=== PATIENT | female | born 1965 | race Caucasian/White ===

== ENCOUNTER 2024-11-25 11:11 | Emergency (ER) | payer OTHER, SELFPAY ==
[2024-11-25 11:23] VITALS: BP 118/86; PULSE 67; RESP 16; TEMP 36.8; O2SAT 100
--- NOTE | 2024-11-25 11:24 | ED.FEMALEGU ---
HPI - Female Genitourinary General Chief complaint: Urogenital-Female Stated complaint: possible bladder infection Time Seen by Provider: 11/25/24 11:24 Source: patient, RN notes reviewed and old records reviewed Mode of arrival: ambulatory Limitations: no limitations History of Present Illness HPI Narrative: 59 year old female presents to [facility] care with complaints of 3 weeks of left flank pain. She states that she initially started with some pelvic pressure and thought she may have a yeast infection so she took Fluconazole without resolution of symptoms. She states that she also thought she could have a muscle strain to her left flank stating that she does lift a lot of boxes at the [employer]. She reports that she recently had sinus infection and completed antibiotic 2 days ago. She reports that for the past 2 days she has had increased frequency of urination and has been dribbling urine and has pelvic pressure. Patient reports history of constipation and Diverticulitis. Patient reports no radiation of her left flank pain and has taken Ibuprofen with some decrease in her discomfort. MD elicited complaint: UTI and other (urinary frequency. dribbling of urine. left flank pain) Onset (ago): week(s) (left flank pain and pelvic pressure 3 weeks, 2-3 days of urinary frequency and dribbling urine) Severity scale (1-10): 5 Quality of pain: aching Treatment prior to arrival: NSAIDs and other (took dose of Diflucan) Related Data Home Medications ?Medication ?Instructions ?Recorded ?Confirmed ?Last Taken ?Type benzonatate 200 mg capsule mg PO 11/25/24 Unknown History buspirone 10 mg tablet mg 11/25/24 Unknown History carvedilol 3.125 mg tablet mg 11/25/24 Unknown History escitalopram oxalate 20 mg tablet mg 11/25/24 Unknown History fluticasone furoate 100 inhalation 11/25/24 Unknown History mcg-vilanterol 25 mcg/dose inhalation powder (Breo Ellipta) fluticasone propionate 50 intranasal 11/25/24 Unknown History mcg/actuation nasal spray,suspension montelukast 10 mg tablet mg 11/25/24 Unknown History topiramate 50 mg tablet mg 11/25/24 Unknown History Allergies Allergy/AdvReac Type Severity Reaction Status Date / Time No Known Allergies Allergy Verified 11/25/24 11:22 Review of Systems Review of Systems: CONSTITUTIONAL: Denies fever, chills, or sweats. CARDIOVASCULAR: Denies chest pain, palpitations, or edema. RESPIRATORY: Denies cough or dyspnea. GASTROINTESTINAL: Denies abdominal pain, nausea, vomiting, or diarrhea. GENITOURINARY: Reports no dysuria, states frequency, dribbling of urine and pelvic pressure. Left flank pain denies visible hematuria. SKIN: Denies rash or itching. MUSCULOSKELETAL: Denies back pain or myalgia. reports left CVA tenderness NEUROLOGIC: Denies headache All systems reviewed & are unremarkable except as noted in HPI and below PMFSH Past Medical History Medical History Sinus infection Diverticulitis Fibromyalgia Constipation Family History Family History Mother Diabetes mellitus Hypertension Asthma Family history of Parkinson's disease Grandparent Diabetes mellitus Family history of Parkinson's disease Carcinoma of colon Father Family history of malignant neoplasm Social History Social History Smoking status: Never smoker Alcohol intake: never Substance use type: does not use Gender identity (if verbalized by the patient): Female Comments At time of signature, agree with nursing past medical, surgical, social and family history. There is no relevant family history pertinent to the presenting complaint Exam Narrative: GENERAL: Well-appearing, well-nourished, and in no acute distress. HEAD: Normocephalic, atraumatic. NECK: Supple. no lymphadenopathy CHEST: Clear to auscultation. No respiratory distress.SAO2 100% on room air HEART: Regular rate and rhythm. No murmur heard. Normal peripheral pulses. ABDOMEN: Soft, nontender, nondistended, normal active bowel sounds. Left CVA tenderness which is nonradiating, urinary frequency with dribbling of urine with pelvic pressure EXTREMITIES: Normal range of motion. No edema. SKIN: Warm, dry, no rash. NEURO: No focal deficits. Alert and oriented x3. Course Course Emergency Course: Patient is aware of diagnosis, understands and agrees to treatment plan.? Anticipatory guidance given.? Patient agrees to follow-up as directed and is aware of reasons to seek care at the emergency department. Portions of this record may have been created with voice recognition software Level of Care: Express Care Visit Vital Signs Vital signs: Vital Signs Temperature 36.8 C 11/25/24 11:23 Pulse Rate 67 11/25/24 11:23 Respiratory Rate 16 11/25/24 11:23 Blood Pressure 118/86 11/25/24 11:23 Pulse Oximetry 100 11/25/24 11:23 Temperature 36.8 C 11/25/24 11:23 Pulse Rate 67 11/25/24 11:23 Respiratory Rate 16 11/25/24 11:23 Blood Pressure 118/86 11/25/24 11:23 Pulse Oximetry 100 11/25/24 11:23 MDM - Female Genitourinary MDM Narrative Medical decision making narrative: Exam findings and UA show no acute concerns or changes; patient is non-toxic appearing and is in no distress.? Patient is appropriate for outpatient treatment and follow-up. Differential Diagnosis Differential diagnosis: Likely urinary tract infection, cystitis and other (left flank pain, pelvic pressure) Medical Records Attestation: I reviewed the patient's medical records. Lab Data Attestation: I reviewed the patient's lab results. Lab results narrative: reviewed urine dip: trace blood, specific gravity 1.030, Bilirubin 1+ Labs: Lab Results 11/25/24 Range/Units 11:29 POC Urine Color Yellow POC Urine Clarity Clear POC Urine pH 6.0 POC Ur Specif [place] 1.030 POC Urine Protein Negative (Negative) POC Ur Glucose (UA) Negative (Negative) POC Urine Ketones Negative (Negative) POC Urine Blood Trace (Negative) POC Urine Nitrite Negative (Negative) POC Urine Bilirubin 1+ (Negative) POC Urine Urobilinogen 0.2 POC U Leukocyte Esteras Negative (Negative) reviewed Critical Care Time Critical Care Time Critical Care Time: No Discharge Plan Discharge Clinical Impression: UTI symptoms, Flank pain, left side Patient Disposition: Home Condition: Stable Instructions: Antibiotic Form, Urinary Tract Infection in Women (ED), Flank Pain (ED) Additional Instructions: Increase fluids especially cranberry juice and water Avoid caffeine and carbonated beverages Antibiotic as directed Medicine as directed--cautioned it will cause your urine to be bright orange Tylenol/ibuprofen for pain or fever per package instruction Follow-up with her primary care provider if further problems or concerns Recheck if you have fever over 101, nausea and vomiting. If any increase in pain or visible blood go to the emergency room If your symptoms persist, change or worsen significantly before you can contact your personal physician then please, without delay, go to the emergency department for further evaluation. Follow-up with PCP in 7-10 days or sooner if needed Patient Language: Vietnamese Prescriptions: New phenazopyridine [Pyridium] 100 mg tablet 100 mg PO TID PRN (Reason: pain) Qty: 6 0RF ciprofloxacin HCl 500 mg tablet 500 mg PO Q12H Qty: 6 0RF No Action benzonatate 200 mg capsule PO carvedilol 3.125 mg tablet buspirone 10 mg tablet montelukast 10 mg tablet fluticasone propionate 50 mcg/actuation spray,suspension INTRANASAL escitalopram oxalate 20 mg tablet fluticasone furoate-vilanterol [Breo Ellipta] 100-25 mcg/dose blister with device INHALATION topiramate 50 mg tablet Follow-up/Referrals: Main,MD Georgina [Primary Care Provider] Time of Disposition: 11:52 Quality [place] Coma Scale Eyes: Open Verbal: Oriented and Alert Motor: Follows Commands [place] Coma Total Score: 15
[2024-11-25 11:31] LABS: EDUAAPPEAR Clear; EDUABILI 1+ (Negative); EDUABLOOD Trace (Negative); EDUACOLOR1 Yellow; EDUAGLUCOSE Negative (Negative); EDUAKETONE Negative (Negative); EDUALEUKO Negative (Negative); EDUANITRATE Negative (Negative); EDUAPH 6.0; EDUAPROTEIN Negative (Negative); EDUASPGRAVITY 1.030; EDUAUROBILI 0.2
== END 2024-11-25 11:58 | disposition home or self-care (01) ==
PROVIDERS: Emergency Provider Registered Nurse; PCP Internal Medicine Geriatric Medicine
DX: R10.A2 Flank pain, left side (principal); R35.0 Frequency of micturition; R10.20 Pelvic and perineal pain unspecified side; M79.7 Fibromyalgia
CPT/HCPCS: 81003; 87086; 99213; G0463